=== PATIENT | female | born 1935 ===

== ENCOUNTER 2017-12-08 07:25 | Day surgery (SDC) | payer MEDICARE, OTHER ==
[~2017-12-08 07:25] MED LIST: BALANCED SALT IRRIG SOLN COMB1 500 ML, EPINEPHRINE-PF 1:1000 1 MG IO ONE
[2017-12-08] MEDS ORDERED: IV LACTATED RINGERS SOLUTION 1,000 ML BAG IV ONE (07:26)
[2017-12-08] MEDS ORDERED: CYCLOPENTOLATE 1% OPHT DROP 2 ML BOTTLE ONE (07:57)
[2017-12-08] MEDS ORDERED: PHENYLEPHRINE 2.5% OPHT DROP 2 ML BOTTLE ONE (07:57)
[2017-12-08] MEDS ORDERED: FLURBIPROFEN 0.03% OPHT DROP 2.5 ML BOTTLE ONE (07:57)
[2017-12-08] MEDS ORDERED: CIPROFLOXACIN 0.3% OPHT DROP 2.5 ML BOTTLE ONE (07:57)
[2017-12-08] MEDS ORDERED: TETRACAINE HCL 0.5% OPHT DROP 2 ML BOTTLE ONE ×2 (07:57→08:04)
[2017-12-08] MEDS ORDERED: PILOCARPINE 1% OPHT DROP 15 ML BOTTLE ONE (08:03)
[2017-12-08] MEDS ORDERED: NEO/POLYMYX B/DEXAME OPHT OINT 3.5 GM TUBE ONE (08:03)
[2017-12-08] MEDS ORDERED: LIDOCAINE HCL-MPF 1% 5 ML VIAL ONE (08:04)
[2017-12-08] MEDS ORDERED: HYALURONATE SODIUM 8.5 MG/0.85 ML DISP.SYRIN ONE ×2 (08:04→09:19)
[2017-12-08] MEDS ORDERED: EPINEPHRINE 1 MG/1 ML AMP ONE (08:04)
[2017-12-08] MEDS ORDERED: BALANCED SALT IRRIG SOLN COMB2 15 ML IRRIG.SOLN ONE (08:04)
[2017-12-08] MEDS ORDERED: BUPIVACAINE PF 0.5% 30 ML VIAL ONE (08:04)
[2017-12-08 08:15] LABS: BASOPHILS % (AUTO) 1.3 % (0.0-2.0); EOSINOPHILS # (AUTO) 0.1 K/uL (0.0-0.7); EOSINOPHILS % (AUTO) 3.1 % (0.0-7.0); HEMOGLOBIN 13.6 g/dL (10.9-14.3); LYMPHOCYTES # (AUTO) 0.9 K/uL (20.0-40.0); LYMPHOCYTES % (AUTO) 32.1 % (20.5-51.5); MEAN CORPUSCULAR HEMOGLOBIN 32.6 uug (24.7-32.8); MEAN CORPUSCULAR HGB CONC 33 g/dL (32.3-35.6); MEAN CORPUSCULAR VOLUME 98.5 fL (75.5-95.3); MONOCYTES # (AUTO) 0.2 K/uL (2.0-10.0); NEUTROPHILS # (AUTO) 1.5 K/uL (1.8-8.9); NEUTROPHILS % (AUTO) 56.5 % (38.5-71.5); PLATELET COUNT (AUTO) 174 K/uL (179-408); RED BLOOD CELL COUNT(AUTO) 4.17 MIL/uL (3.63-4.92); WHITE BLOOD COUNT (AUTO) 2.7 K/uL (3.8-11.8)
[2017-12-08 08:16] LABS: *BILIRUBIN,URIN NEGATIVE (NEGATIVE); *BLOOD, URINE Trace-intact (NEGATIVE); *CLARITY,URINE SLIGHTLY CLOUDY (CLEAR); *COLOR,URINE YELLOW (YELLOW); *KETONES,URINE NEGATIVE (NEGATIVE); *PROTEIN,URINE NEGATIVE (NEGATIVE); *UROBILINOGEN,URINE 0.2 E.U./dl (NORMAL); LEUKOCYTE ESTERASE ,URINE 2+ (NEGATIVE); NITRITE, URINE NEGATIVE (NEGATIVE); UGLUCOSE NEGATIVE (NEGATIVE)
[2017-12-08 08:23] LABS: CARBON DIOXIDE 33 mmol/L (21-32); CHLORIDE 106 mmol/L (98-107); GLUCOSE 115 mg/dL (74-106); POTASSIUM 4.3 mmol/L (3.5-5.1); UREA NITROGEN, BLOOD 30 mg/dL (7-18)
[2017-12-08 08:24] LABS: BACTERIA,URINE FEW /HPF (NONE SEEN); SQUAMOUS EPITHELIAL CELL,UR FEW /HPF (NONE SEEN)
[2017-12-08 08:43] LABS: BASOPHILS % (MANUAL) 1 % (0-2); EOSINOPHILS % (MANUAL) 4 % (0-8); LYMPHOCYTES % (MANUAL) 33 % (20-40); MONOCYTES % (MANUAL) 6 % (2-10); NEUTROPHILS % (MANUAL) 56 % (42-75)
[2017-12-08] MEDS ORDERED: MIDAZOLAM HCL 2 MG/2 ML VIAL ONE (08:47)
[2017-12-08] MEDS ORDERED: FENTANYL CITRATE 100 MCG/2 ML AMPUL ONE (08:47)
[2017-12-08] MEDS ORDERED: prednisoLONE ACET 1% OPHT DROP 5 ML BOTTLE ONE (09:24)
== END 2017-12-08 10:30 | disposition home or self-care (01) ==
LOC: DS 07:25
PROVIDERS: ATTEND Dermatology MOHS-Micrographic Surgery
DX: H25.811 Combined forms of age-related cataract, right eye (principal); I10 Essential (primary) hypertension; I73.9 Peripheral vascular disease, unspecified; G89.29 Other chronic pain; M19.90 Unspecified osteoarthritis, unspecified site; Z96.652 Presence of left artificial knee joint; Z79.01 Long term (current) use of anticoagulants; Z95.0 Presence of cardiac pacemaker; Z79.899 Other long term (current) drug therapy; Z86.69 Personal history of other diseases of the nervous system and sense organs; Z88.8 Allergy status to other drugs, medicaments and biological substances
CPT/HCPCS: 36415; 71045; 85025; 85730; 93005; A4663; J0171; J2250; J2650; J3010; J3490; J3590; J7120; J7321; V2632